=== PATIENT | female | born 1960 | race Caucasian/White ===

== ENCOUNTER → 2017-01-04 | Outpatient (CLI) | payer BC, OTHER ==
[2017-01-04 17:45] LABS: FREE T4 1.25 NG/DL (0.76-1.46)
== END ==
LOC: M LAB 15:49
PROVIDERS: ATTEND Family Medicine
DX: E03.8 Other specified hypothyroidism (principal)

== ENCOUNTER 2017-01-18 12:17 | Emergency (ER) | payer BC, OTHER ==
[~2017-01-18] VITALS: Ht 160 cm; Wt 102.5 kg
[2017-01-18] MEDS ORDERED: LEVO10VL IM (12:59)
[2017-01-18] MEDS ORDERED: LEVO125T3 PO (12:59)
[2017-01-18] MEDS ORDERED: CLIN1CAP5 PO (12:59)
[2017-01-18 13:40] LABS: BASO % 0.6 % (0.0-1.0); EOS # 0.2 K/mm3 (0.0-0.50); EOS % 3.5 % (0.0-3.0); LARGE UNSTAINED CELL # 0.2 K/mm3 (0.0-0.4); LARGE UNSTAINED CELL % 3.9 % (0.0-4.0); LYMPH # 1.7 K/mm3 (1.5-4.5); LYMPH % 29.6 % (24.0-44.0); MEAN CORPUSCULAR HEMOGLOBIN 28.5 pg (27.0-33.0); MEAN CORPUSCULAR HGB CONC 33.3 g/dl (32.0-36.5); MEAN CORPUSCULAR VOLUME 85.6 fl (80.0-96.0); MONO # 0.4 K/mm3 (0.0-0.8); MONO % 7.9 % (0.0-5.0); NEUTROPHILS # 2.8 K/mm3 (1.8-7.7); NEUTROPHILS % 54.5 % (36.0-66.0); PLATELET COUNT, AUTOMATED 215 k/mm3 (150-450); RED CELL DISTRIBUTION WIDTH 13.2 % (11.5-14.5); WHITE BLOOD COUNT 5.2 K/mm3 (4.0-10.0)
[2017-01-18 13:58] LABS: ALBUMIN 3.9 GM/DL (3.2-5.2); ALBUMIN/GLOBULIN RATIO 1.18 (1.00-1.93); ALKALINE PHOSPHATASE 131 U/L (45-117); ALT/SGPT 29 U/L (12-78); ANION GAP 8 MEQ/L (8-16); AST/SGOT 20 U/L (15-37); BILIRUBIN,DIRECT 0.1 MG/DL (0.0-0.2); BILIRUBIN,TOTAL 0.7 MG/DL (0.2-1.0); BLOOD UREA NITROGEN 14 MG/DL (7-18); CARBON DIOXIDE LEVEL 27 MEQ/L (21-32); CHLORIDE LEVEL 102 MEQ/L (98-107); CREATININE FOR GFR 0.64 MG/DL (0.55-1.02); GLOMERULAR FILTRATION RATE > 60.0 (>51); GLUCOSE, FASTING 94 MG/DL (70-105); POTASSIUM SERUM 4.2 MEQ/L (3.5-5.1); SODIUM LEVEL 137 MEQ/L (136-145); TOTAL PROTEIN 7.2 GM/DL (6.4-8.2)
[2017-01-18] MEDS ORDERED: ISOVUE-370 76% 100ML VIAL (Q9967) As Ordered ONE (14:05)
[2017-01-18] MEDS ORDERED: BACT800T5 PO (14:39)
[2017-01-18] MEDS ORDERED: MUPI2OI EXT (14:42)
[2017-01-18 14:52] VITALS: BP 155/98
--- NOTE | 2017-01-18 15:10 | REP ---
REASON FOR EXAM: Assess for deep subcutaneous abscess of the anterior abdominal wall. COMPARISON: 03/01/2016 CONTRAST: 100 mL [id number]. The lung bases are clear and unchanged. Once again, there is diffuse low density throughout the hepatic parenchyma. The gallbladder, spleen, pancreas, adrenal glands, and kidneys are unchanged remaining within normal limits. There is a hiatal hernia, status quo. The abdominal aorta and para-aortic regions are within normal limits and unchanged. The bowel loops and their mesenteries are unchanged remaining within normal limits. There are a few nonspecific nondilated gas and fluid-filled small bowel loops. There is no intra-abdominal mass or adenopathy. There is no free fluid or free air. There is no change in appearance of the anterior abdominal wall. There is no distinct rent or herniation. There is no evidence of an abscess. CT PELVIS: The bowel loops and their mesenteries are within normal limits. There is no mass or adenopathy. There is no free fluid or free air. Bone window technique throughout the exam shows the osseous structures to be stable and intact with mild spinal degenerative changes, status quo. IMPRESSION: No acute intra-abdominal or intrapelvic disease or significant change from the prior exam. There is no evidence of an abscess. There is unchanged diffuse fatty infiltration of the liver and an unchanged hiatal hernia. Signed by Wil Rojas DO 01/18/2017 04:52 P
== END 2017-01-18 14:53 | disposition home or self-care (01) ==
LOC: M ED 13:48
DX: L03.311 Cellulitis of abdominal wall (principal); K44.9 Diaphragmatic hernia without obstruction or gangrene; K76.0 Fatty (change of) liver, not elsewhere classified; Z91.09 Other allergy status, other than to drugs and biological substances
CPT/HCPCS: 74177; 80048; 80076; 83690; 85025; 99282; Q9967

== ENCOUNTER → 2018-02-20 | Outpatient (CLI) | payer BC, OTHER ==
[2018-02-20 11:29] LABS: FREE T4 1.26 NG/DL (0.76-1.46); THYROID STIMULATING HORMONE 0.201 uIU/ML (0.358-3.740)
== END ==
LOC: M LAB 10:34
DX: E03.8 Other specified hypothyroidism (principal); F32.9 Major depressive disorder, single episode, unspecified
CPT/HCPCS: 84443

== ENCOUNTER → 2018-03-27 | Outpatient (CLI) | payer BC, OTHER | LOC: M RAD 06:27 | DX: R10.12 Left upper quadrant pain (principal) | CPT/HCPCS: 76705 ==

== ENCOUNTER → 2018-11-06 | Outpatient (CLI) | payer BC, OTHER ==
[~2018-11-06] MED LIST: BACT800T5 PO; CLIN150C14 PO; LEVO10VL IM; LEVO125T4 PO; MUPI2OI EXT
== END ==
LOC: M LAB 11:27
PROVIDERS: ATTEND Nurse Practitioner
DX: E03.8 Other specified hypothyroidism (principal)

== ENCOUNTER → 2018-12-27 | Outpatient (CLI) | payer BC, OTHER ==
--- NOTE | 2018-12-27 17:07 | REP ---
BILATERAL MAMMOGRAM WITH 3D TOMOSYNTHESIS AND RIGHT BREAST ULTRASOUND: Bilateral mammography performed in the ML and CC projections. 3D tomosynthesis was performed. Comparison made with several prior studies most recently 05/06/2015. There is a family history of breast cancer in maternal grandmother over age 50. Lex Menon lifetime risk of breast cancer 11.3%. Moderate fibroglandular densities are seen bilaterally. A spiculated nodule is seen at 12-o'clock in the right breast. No other mass or clustered microcalcifications are seen bilaterally. There are normal sized axillary lymph nodes bilaterally. Real-time sonographic evaluation of the right breast performed in the region of the spiculated nodule at 12-o'clock right breast. There is a solid irregular nodule at that location corresponding to the mammographic abnormality. There is internal vascularity with duplex Doppler evaluation. This measures approximately 1.3 x 1.0 x 1.1 cm. This is suspicious. IMPRESSION: ACR 4 suspicious. Spiculated nodule 12-o'clock right breast measuring slightly greater than 1 cm in diameter. It is solid by ultrasound. Recommend ultrasound guided biopsy with postprocedure mammogram. BIRADS 4: BI-RADS/ACR category 4 mammogram. Suspicious Abnormality - biopsy should be considered. This mammogram was interpreted with the aid of an FDA-approved computer-aided detection system. The patient states she/he had a clinical breast exam in 11/2018. The patient letter being requested is M4. Electronically Signed by Tom Washington MD 12/27/2018 05:09 P
== END ==
LOC: M RAD 15:07
PROVIDERS: ATTEND Nurse Practitioner
DX: Z12.31 Encounter for screening mammogram for malignant neoplasm of breast (principal); Z80.3 Family history of malignant neoplasm of breast; N63.20 Unspecified lump in the left breast, unspecified quadrant

== ENCOUNTER → 2018-12-28 | Outpatient (CLI) | payer BC, OTHER ==
[~2018-12-28] MED LIST changes: +LIDOCAINE 1% MDV 20ML VIAL As Ordered ONE
--- NOTE | 2018-12-28 12:00 | REP ---
POSTBIOPSY MAMMOGRAM RIGHT BREAST: Postbiopsy mammogram right breast performed following ultrasound guided biopsy of spiculated nodule at 12 o'clock right breast. A metallic clip is seen in the spiculated nodule. Electronically Signed by Tom Washington MD 12/28/2018 04:16 P
--- NOTE | 2018-12-28 16:34 | REP ---
ULTRASOUND GUIDED RIGHT BREAST BIOPSY The procedure was performed under the direct supervision of Dr. Washington The patient has a history of a spiculated nodule in the 12 o'clock position of the right breast seen on a previous ultrasound dated 12/27/2018. The risks and benefits of the procedure were explained to the patient and informed consent was obtained. The left breast nodule was localized using ultrasound guidance. The skin was prepped and draped in a sterile fashion. 1% Xylocaine was used as a local anesthetic. Using ultrasound guidance a 13-gauge suction assisted Mammotome needle was inserted and six core biopsy samples were obtained. A marker clip was placed at the biopsy site. The patient tolerated the procedure well and there were no immediate complications. After the appropriate amount of monitored convalescence the patient was discharged from the department. Reviewed by TREASURE Caba 12/28/2018 04:17 P Electronically Signed by Tom Washington MD 12/28/2018 04:26 P
== END ==
LOC: M RADPRO 09:50
PROVIDERS: ATTEND Nurse Practitioner
DX: C50.911 Malignant neoplasm of unspecified site of right female breast (principal); Z79.899 Other long term (current) drug therapy

== ENCOUNTER → 2019-03-19 | Outpatient (CLI) | payer BC, OTHER ==
[~2019-03-19] MED LIST changes: +ANAS1TAB2 PO; -LIDOCAINE 1% MDV 20ML VIAL As Ordered ONE
--- NOTE | 2019-03-20 10:39 | RADONC ---
RADIATION ONCOLOGY NEW PATIENT CONSULTATION DATE: 03/19/2019 REFERRING PHYSICIAN: Dr. Gloria Boswell CHART NUMBER: [id number] DIAGNOSIS: Infiltrating ductal carcinoma, right breast. STAGE: [id number] status post lumpectomy, ER positive, HER2/sue 2+, in a postmenopausal female. ICD 10 CODE: C50.911 HISTORY OF THE PRESENT ILLNESS: The patient is a 58-year-old woman who has undergone yearly mammograms and to date has had no significant issues with her studies. A screening mammogram though most recently revealed that the right breast showed an abnormality at the 12 o'clock position. A 1.3 cm nodule was noted and under ultrasound a biopsy of this lesion was obtained. This confirmed a diagnosis of an infiltrating ductal carcinoma. The patient was offered breast conservation adjuvant radiotherapy following conservative surgery. She underwent a lumpectomy and sentinel lymph node biopsy on 01/22/2019. The final pathology did indeed confirm an infiltrating ductal carcinoma involving the right breast. The tumor was strongly estrogen receptor positive and progesterone receptor positive. Her HER2/sue was equivocal but thought to be 2+ positive. The patient underwent an oncotype DX, which revealed that the patient had a 3% risk of recurrence over 9 years and chemotherapy benefit was less than 1%. The patient has been started on hormonal therapy under the direction of Dr. Gloria Boswell. She comes today to be evaluated for adjuvant local regional radiotherapy. PAST MEDICAL HISTORY: The patient had an exploratory laparotomy in the past. She also has had GERD requiring surgery in 1997. She had a partial hysterectomy in 2000 and laser surgery for varicose veins in July of 2012. 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 MEDICATIONS: - levothyroxine 125 mcg by mouth daily FAMILY HISTORY OF CANCER: Her father had cancer and is . She has a mother who had cancer presumed to be non-Hodgkin's lymphoma. She also has had cancer involving her maternal grandmother, maternal grandfather, and maternal second cousin. REVIEW OF SYSTEMS: Constitutional: She has a good appetite and does not notice fatigue, fever, lethargy, malaise, night sweats, rigors, chills, or weight change. EENT: Denies ear pain, epistaxis, esophagitis, hearing problems, mouth dryness, oral bleeding, otitis, sinusitis, sputum problems, stomatitis, taste alteration, or tinnitus. Neck: Denies masses, muscle weakness, or pain. Integumentary: Denies alopecia, blisters, bruising, dry skin, facial burning, photosensitivity, pruritus, rash, or urticaria. Breasts: Denies having breast masses at the current time. She also denies nipple discharge, nipple inversion, or pain. Cardiovascular: Denies arrhythmias chest pain, dyspnea, edema, orthopnea, or palpitations. Respiratory: Denies coughing, dyspnea, hemoptysis, hiccups, pleuritic chest pain, or wheezing. Gastrointestinal: Denies changes in bowel habits, constipation, diarrhea, heartburn, dyspepsia, hematemesis, hematochezia, hemorrhoids, melanoma, GI bleeding, nausea, pain, cramping, early satiety, or vomiting. Genitourinary: Denies dysuria, frequency genital masses, hematuria, incontinence, nocturia, renal stones, sexual dysfunction, urgency, change in urine color, or vaginal discharge, or vaginal bleeding. Musculoskeletal: Denies arthritis, bone pain, joint pain, muscle weakness, [id number] changes. Psychiatric: Denies delusions, hallucinations, mood changes, or mood swings. Hematologic: Denies easy bruising or lymphadenopathy. EXAMINATION FINDINGS: Vital signs: Weight 223.6, height 63 inches, temperature 96.3, pulse 77, BP 135/94, O2 saturation 96. HEENT: Normocephalic. EOMs intact. PERRLA. Fundi benign. Lymphatics: No palpable peripheral lymphadenopathy is appreciated in the cervical, supraclavicular, axillary, or inguinal lymph node chains. Lungs are clear to auscultation and percussion. Heart: Regular without murmurs. Abdomen: Without evidence of hepatomegaly, masses, or deep abdominal tenderness. Midline remote surgical scar is noted. Extremities: Without cyanosis, clubbing, or edema. Neurologic: Examination grossly physiologic and nonfocal. Breasts: Bilaterally symmetric but marginally pendulous. No masses are palpable in either breast. No lymphadenopathy is appreciated regionally. IMPRESSION: Stage [id number], ER/IL positive, HER2/sue 2+, in a postmenopausal female. PLAN OF RADIOTHERAPY: The patient has undergone an oncotype DX, which did not indicate a significant improvement in her overall outcome with the use of chemotherapy. She has been placed on hormonal therapy as managed by Dr. Gloria Boswell. We would recommend that she consider adjuvant local regional radiotherapy to consist of whole breast radiotherapy with a boost to the lumpectomy scar site. Prior to treatment delivery localization will be accomplished upon our CT simulator and treatment portals defined by the use of multiple leaf collimators. The patient will be simulated after insurance approval is obtained. The indications, possible side effects, as well as alternatives to radiotherapy been explained to the patient in detail. She understands and is willing to proceed as outlined. Thank you for allowing us the opportunity of participation in the management of this very ankit lady most sincerely. cc: MD Jayashree Villatoro MD [facility]
== END ==
LOC: M ONCR 13:55
PROVIDERS: ATTEND Radiology Radiation Oncology
DX: C50.919 Malignant neoplasm of unspecified site of unspecified female breast (principal)

== ENCOUNTER → 2019-04-11 | Outpatient (CLI) | payer BC ==
--- NOTE | 2019-04-16 15:32 | DEXA ---
AP SPINE L1 - L4 1.032 -1.3 -0.4 LT FEMUR TOTAL 1.024 0.1 0.8 LT NECK 0.881 -1.1 -0.1 RT FEMUR TOTAL 0.945 -0.5 -0.2 RT NECK 0.844 -1.4 0.3 TOTAL BODY TOTAL OTHER COMMENTS: There is low bone density of the spine and hips. FOLLOW-UP: Recommendation for the next bone density exam: 2 years. SANDY
== END ==
LOC: M WHC 13:58
PROVIDERS: ATTEND Internal Medicine Hematology & Oncology
DX: M81.0 Age-related osteoporosis without current pathological fracture (principal)

== ENCOUNTER → 2019-04-24 | Outpatient (RCR) | payer BC, OTHER ==
--- NOTE | 2019-04-02 08:49 | RADONC ---
RADIATION ONCOLOGY SIMULATION NOTE DATE: 04/01/2019 CHART NUMBER: [id number] Ms. Sol was taken to the CT scan for CT simulation of her right breast field. CT was accomplished without difficulty or discomfort. Radiation treatment planning is underway and radiation treatments will begin subsequently. An immobilization device was created without difficulty or discomfort. It will be used throughout the course of treatment. I was physically present throughout the course of CT simulation.
[2019-04-02 10:45] LABS: HEMATOCRIT 38.3 % (36.0-47.0); HEMOGLOBIN 12.8 g/dl (12.0-15.5); LYMPH % 38.8 % (24.0-44.0); MEAN CORPUSCULAR HGB CONC 33.4 g/dl (32.0-36.5); MEAN CORPUSCULAR VOLUME 86.8 fl (80.0-96.0); NEUTROPHILS # 2.1 10^3/uL (1.8-7.7); NEUTROPHILS % 48.1 % (36.0-66.0); RED BLOOD COUNT 4.41 10^6/uL (4.00-5.40); WHITE BLOOD COUNT 4.3 10^3/uL (4.0-10.0)
--- NOTE | 2019-04-17 06:47 | RADONC ---
RADIATION ONCOLOGY PROGRESS NOTE DATE: 04/16/2019 CHART #: [id number] Ms. Sol is presently at a dose of 900 cGy to her right breast and is tolerating treatments quite well at this point with no complaints related to her radiation therapy. She is having no breast or bone pain. REVIEW OF SYSTEMS: The patient's review of systems is noncontributory. Denies nausea, vomiting, fevers, chills, night sweats, diplopia, headaches, anxiety or depression, anorexia, weight loss, visual disturbances, chest pain, urinary or bowel difficulties, bone pain, or neurological problems. PHYSICAL EXAMINATION: The patient's skin is in excellent condition with no evidence of radiation change present. There is no moist or dry desquamation. The remainder of her physical exam remains unchanged. Ms. Sol is tolerating treatments quite well and radiation will continue as scheduled.
--- NOTE | 2019-04-23 07:53 | RADONC ---
RADIATION ONCOLOGY PROGRESS NOTE DATE: 04/22/2019 CHART #: [id number] Ms. Sol is presently at a dose of 1800 cGy to her right breast and is tolerating treatments quite well at this point with no significant difficulties related to her radiation therapy. She is having just some slight breast discomfort. REVIEW OF SYSTEMS: The patient's review of systems is positive for some slight breast discomfort, but is otherwise noncontributory. Denies nausea, vomiting, fevers, chills, night sweats, diplopia, headaches, anxiety or depression, anorexia, weight loss, visual disturbances, chest pain, urinary or bowel difficulties, bone pain, or neurological problems. PHYSICAL EXAMINATION: The patient's skin is in good condition with no evidence of moist or dry desquamation. There is just some erythema and tanning present. The remainder of her physical exam remains unchanged. Ms. Sol is tolerating treatments quite well and radiation will continue as scheduled.
[~2019-04-24] MED LIST changes: +LEVO100T5 PO
== END ==
LOC: M ONCR 04-01 14:05
PROVIDERS: ATTEND Radiology Radiation Oncology
DX: C50.911 Malignant neoplasm of unspecified site of right female breast (principal)

== ENCOUNTER 2019-05-16 07:54 | Outpatient (RCR) | payer BC, OTHER ==
--- NOTE | 2019-05-07 11:47 | RADONC ---
RADIATION ONCOLOGY PROGRESS NOTE DATE: 05/06/2019 CHART #: [id number] Mrs. Sol with right breast cancer is currently receiving radiotherapy and she has achieved a dose of 3600 cGy of a proposed 4860 cGy to the breast. This will most likely be followed by a boost. The patient denies major symptoms related to her disease or to her treatments. REVIEW OF SYSTEMS: She has some skin discomfort in the inframammary fold and in the axilla associated with brisk erythema with focal desquamation. There is no evidence of confluent desquamation. She denies any nausea, vomiting, coughing, sputum production or hemoptysis. Her energy level is such that she is able to maintain most day-to-day activities without any alteration of her lifestyle. The remainder of the review of systems is noncontributory. PHYSICAL EXAMINATION: The patient's skin is markedly erythematous with no focal areas of imminent desquamation. There is no confluent desquamation. No masses are palpable in either breast. The remainder of the physical examination is unchanged. IMPRESSION: Tolerating therapy reasonably well as anticipated, but with marked erythema and imminent focal desquamation. PLAN: Aquaphor to apply to the skin a minimum of twice daily. If the patient develops further desquamation, we will consider giving her a prescription for some Silvadene cream.
--- NOTE | 2019-05-15 14:16 | RADONC ---
RADIATION ONCOLOGY PROGRESS NOTE DATE: 05/13/2019 CHART NUMBER: [id number] PROGRESS NOTE: The patient presently is at a dose of 4320 cGy to her right breast and is tolerating treatments quite well at this point. She is complaining of some discomfort in the axillary region. REVIEW OF SYSTEMS: The patient's review of systems is positive for some axillary discomfort but is otherwise noncontributory. Denies nausea, vomiting, fevers, chills, night sweats, diplopia, headaches, anxiety or depression, anorexia, weight loss, visual disturbances, chest pain, urinary or bowel difficulties, bone pain, or neurological problems. PHYSICAL EXAMINATION: The patient's skin overall is in good condition. There is a small area of some moist desquamation in the axillary region. The remainder of physical exam remains unchanged. I had a lengthy discussion with this patient about the possibility of taking a short treatment break. She is using Silvadene as prescribed by Dr. Finn. The patient reports that she will be going on vacation next week and does not wish to take an extended break. In light of this, she will be continuing her treatment at this time. She will have radiation today and tomorrow, and perhaps take off Monday, and Monday as well as next week coming back to complete her whole breast treatment and then her electron boost field. Once again, she will continue using Silvadene and will consider taking the break we discussed today.
[~2019-05-16 07:54] MED LIST changes: -LEVO100T5 PO
--- NOTE | 2019-05-22 06:40 | RADONC ---
RADIATION ONCOLOGY PROGRESS NOTE DATE: 05/20/2019 CHART #: [id number] Ms. Sol is on vacation this week. She is out of town and therefore did not receive any radiation today. Her dose thus far is at 4860 cGy, last treated on 05/16/2019. She did complete whole breast radiation and will begin her boost treatment to the primary site when she returns next week.
== END 2019-05-25 ==
LOC: M ONCR 07:54
PROVIDERS: ATTEND Radiology Radiation Oncology
DX: C50.911 Malignant neoplasm of unspecified site of right female breast (principal)

== ENCOUNTER 2019-06-03 07:57 | Outpatient (RCR) | payer BC, OTHER ==
--- NOTE | 2019-05-29 08:12 | RADONC ---
RADIATION ONCOLOGY PROGRESS NOTE DATE: 05/28/2019 CHART NUMBER: [id number] PROGRESS NOTE: Mrs. Sol was on a break last week. Actually, she may have been on vacation but she had achieved a dose of 4860 cGy. She was experiencing a great deal of erythema with some focal areas of desquamation. Some of the focal desquamation is still present, however appears to be significantly better. REVIEW OF SYSTEMS: Skin within the irradiated volume as stated. Has evidence of focal desquamation both dry and moist and has some areas around the areola which are also quite irritated. There are no confluent areas of moist desquamation. Her energy level is such that she is able to maintain most day-to-day activities and she is still working. The remainder of the review of systems is unchanged. IMPRESSION: She is a well-nourished, well-developed female, in no acute distress. She does have small focal areas of desquamation scattered throughout the breast most prominent in the inframammary fold in the periareolar area. She also has some areas just underneath her arm. She has been treated with Silvadene cream and this appears to have successfully kept the patient from developing any signs of infection. Tolerating therapy well. PLAN: Treatments to continue. MTDD
== END 2019-06-24 ==
LOC: M ONCR 07:57
PROVIDERS: ATTEND Radiology Radiation Oncology
DX: C50.911 Malignant neoplasm of unspecified site of right female breast (principal)

== ENCOUNTER → 2019-07-03 | Outpatient (CLI) | payer BC, OTHER ==
--- NOTE | 2019-07-04 07:34 | RADONC ---
RADIATION ONCOLOGY FOLLOWUP NOTE DATE: 07/03/2019 CHART NUMBER: [id number] DIAGNOSIS: Right breast cancer. STAGE: IA, T1c, N0, M0. FOLLOWUP NOTE: Ms. Sol is a very pleasant 58-year-old white female with the diagnosis of a stage IA, T1c, N0, M0, infiltrating ductal carcinoma of the right breast who is presenting to us today for routine followup visit 1 month post completion of external beam radiation therapy. The patient presents today reporting that she is doing quite well with no complaints at this time related to her radiation therapy or disease. She has no breast or bone pain. The patient's review of systems is noncontributory. She denies nausea, vomiting, fevers, chills, night sweats, diplopia, headaches, anxiety or depression, anorexia, weight loss, visual disturbances, chest pain, urinary or bowel difficulties, bone pain, or neurological problems. PHYSICAL EXAMINATION: The patient is a well-developed, well-nourished, female in no acute distress. HEENT exam is normocephalic, atraumatic. Extraocular movements are intact. There is no palpable cervical, supraclavicular, infraclavicular, axillary, or inguinal lymphadenopathy present. Lungs are clear to auscultation and percussion. Heart has a regular rate and rhythm. Abdomen is benign with no hepatosplenomegaly, masses, or tenderness. Breast examination reveals no masses or discharge bilaterally. Skeletal examination reveals no tenderness to pressure or percussion of the bony skeleton. Extremities reveal no clubbing, cyanosis, or edema. Neurologic exam is grossly intact, as is the remainder of the physical examination. ASSESSMENT: The patient is clinically CHAYITO at this time. She is scheduled to see her medical oncologist, Dr. Gloria Boswell in July and she is subsequently schedule as well to be seen by her surgeon, Jayashree Conn MD at [facility] [place]. In light of the patient's close followup and management with her medical and surgical oncologist, I have discharged her from my followup except on a as needed basis in light of my coming alf. The patient does have my cell phone number and the number here of our center in case she has any questions or we could be of any assistance whatsoever in the meantime.
--- NOTE | 2019-07-08 08:11 | RADONC ---
RADIATION ONCOLOGY TREATMENT SUMMARY DATE: 07/06/2019 CHART NUMBER: [id number] Upon reviewing the electronic medical record on Ms. Sol, I have discovered that her treatment summary was not dictated by [facility] oncologist. Indeed she completed her treatments on 06/03/2019 and therefore I am adding this treatment summary for the sake of thoroughness. DIAGNOSIS: Infiltrating ductal carcinoma of the right breast. STAGE: IA, T1c N0M0, ER positive, HER2/sue positive. ECOG PERFORMANCE STATUS: 0 TREATMENT SUMMARY: Ms. Sol is a very pleasant 58-year-old white female with the diagnosis of a stage IA, [id number], infiltrating ductal carcinoma of the right breast who presented to us status post lumpectomy and sentinel lymph node biopsy for consideration of postoperative radiation therapy for conservative breast management. We treated the patient to the right breast for a total dose of 4860 cGy delivered in 27 fractions of 180 cGy each over 37 elapsed days from 04/09/2019 through 05/16/2019. The patient's right breast was treated on the linear accelerator utilizing a combination of 6X and 10X photon beams with a 3D conformal technique of planning. Following completion of 4860 cGy to the entire left breast the primary site was boosted for an additional 1000 cGy delivered in five fractions of 200 cGy each over six elapsed days from 05/28/2019 through 06/03/2019. The primary site boost was treated on the linear accelerator utilizing a 16 MeV electron beam prescribed to the 90% isodose line via en face technique. This brought the primary site to a total dose of 5860 cGy delivered in 32 fractions over 43 elapsed days from 04/09/2019 through 06/03/2019. I was not present during the patient's final course of treatment but she told me at her followup she had done quite well without difficulties. I did see this patient in followup just 3 days ago on 07/03/2019 and she will continue her actual followup with her medical oncologist and surgeon.
== END ==
LOC: M ONCR 09:01
PROVIDERS: ATTEND Radiology Radiation Oncology
DX: Z85.3 Personal history of malignant neoplasm of breast (principal); Z92.3 Personal history of irradiation

== ENCOUNTER → 2019-08-09 | Outpatient (CLI) | payer BC, OTHER ==
[2019-08-09 17:00] LABS: THYROID STIMULATING HORMONE 1.25 uIU/ML (0.358-3.740); THYROXINE (T4) 11.5 UG/DL (4.5-12.0)
== END ==
LOC: M LAB 16:00
PROVIDERS: ATTEND Nurse Practitioner
DX: E03.8 Other specified hypothyroidism (principal)

== ENCOUNTER → 2020-01-02 | Outpatient (CLI) | payer BC ==
[~2020-01-02] MED LIST changes: +LEVO100T5 PO
--- NOTE | 2020-01-02 11:23 | REP ---
DIGITAL SCREENING BILATERAL MAMMOGRAPHY WITH CAD AND 3D TOMOGRAPHY: HISTORY: Personal history breast carcinoma treated with lumpectomy and radiation therapy. Comparison mammography December 28, 2018, December 27, 2018, July 06, 2015. FINDINGS: There is diffuse stromal and dermal thickening affecting the right breast post radiation. There is some postoperative fibrosis with multiple surgical clips at 12-o'clock position in the right breast and there are surgical clips in the right axillary region. No dominant density is seen in either breast. No architectural distortion or microcalcification. Left breast is unchanged and unremarkable. IMPRESSION: BIRADS 2: BI-RADS/ACR category 2 mammogram. Benign Findings. Expected post-treatment changes in the right breast. BIRADS category 2 benign findings. Repeat screening mammography recommended 1 year. This mammogram was interpreted with the aid of an FDA-approved computer-aided detection system. The patient states that she/he has not had a clinical breast exam in over a year.
== END ==
LOC: M WHC 10:27
PROVIDERS: ATTEND Surgery
DX: Z12.31 Encounter for screening mammogram for malignant neoplasm of breast (principal); Z85.3 Personal history of malignant neoplasm of breast

== ENCOUNTER → 2020-04-20 | Outpatient (CLI) | payer BC ==
[~2020-04-20] MED LIST changes: +SYNT88TA2 PO
--- NOTE | 2020-05-26 12:48 | DEXA ---
AP SPINE L2 - L4 0.979 -1.7 -0.8 LT FEMUR TOTAL 1.010 0.0 0.8 LT NECK 0.897 -1.0 0.1 RT FEMUR TOTAL 0.912 -0.8 0.0 RT NECK 0.829 -1.5 0.4 TOTAL BODY TOTAL OTHER COMMENTS: There is low bone density of the spine and hips. The density of the spine as decreased 5.1% since 04/11/2019. The density of the spine has decreased 1.4% since 04/11/2019. The density if the spine has decreased 3.5% since 04/11/2019. FOLLOW-UP: Recommendation for the next bone density exam: 2 years. SANDY
== END ==
LOC: M WHC 12:53
PROVIDERS: ATTEND Specialist
DX: Z13.820 Encounter for screening for osteoporosis (principal); C50.919 Malignant neoplasm of unspecified site of unspecified female breast

== ENCOUNTER → 2021-03-12 | Outpatient (CLI) | payer BC ==
[~2021-03-12] MED LIST changes: -CLIN150C14 PO; +CLIN150C15 PO
--- NOTE | 2021-03-12 15:53 | REPMRS ---
Patient History The patient states she had a clinical breast exam in SEP 2020. Patient has history of cancer in the right breast at age 58. Family history of unknown cancer at age 56 in mother, breast cancer at age 50 or over in maternal grandmother. Malignant lumpectomy of the right breast, January 21, 2019. Malignant US guided breast biopsy of the right breast, December 28, 2018. Radiation therapy of the right breast. Tooking Anastrozole for 6 months. Taking unspecified hormones for 4 years. Patient states no breast complaints today. Patient has signed MRS History Sheet. Digital Woman Screen Mammo: March 12, 2021 - Exam #: [id number] Bilateral MLO and CC view(s) were taken. XCCL view(s) were taken of the right breast. Technologist: Renuka Velásquez, Technologist Prior study comparison: January 02, 2020, bilateral digital woman screen mammo performed at [facility]. December 28, 2018, right breast digital mammo diagnostic unilateral, performed at [facility]. FINDINGS: There are scattered fibroglandular densities. Screening. This patient?s lifetime risk for the development of invasive breast cancer can?t be calculated due to her age (less than 20 or greater than 85 years) or a prior history of in situ or invasive breast cancer. Digital screening (2D) mammography was performed bilaterally. Additionally, breast tomosynthesis (3D mammography) was performed bilaterally in the CC and MLO projections. Today's exam was compared to the prior exam/exams. By history, the patient has no complaints of a palpable breast abnormality or other significant breast complaints. The patient is status post lumpectomy/chemo radiation therapy due to breast carcinoma. The breasts are unchanged in size and shape. There are no yoana-areas of internal architectural distortion. There are no yoana-soft tissue densities or areas of spiculation. There is unchanged post radiation skin thickening. Once again, stable benign appearing calcifications are seen. IMPRESSION: BI-RADS Category 2- Benign Findings. There is no evidence of malignant alteration of the breasts. Routine bilateral screening mammogram recommended at its regularly scheduled annual interval. This mammogram was read with the assistance of [employer],an FDA approved computer aided detection system for mammography. The Volpara volumetric breast density category is B, there are scattered areas of fibroglandular densities. Negative x-ray reports should not delay surgical consultation if a dominant or clinically suspicious mass is present. Not all breast cancers can be identified by mammography. Therefore, we recommend that you continue to perform regular breast self-examination and physical examination and then promptly contact your physician of any concerns or changes. Adenosis and dense breasts may obscure an underlying neoplasm. Assessment: BI-RADS/ACR category 2 mammogram. Benign Findings. Recommendation Routine screening mammogram of both breasts in 1 year. Electronically Signed By: Wil Rojas DO 03/12/21 [id number]
== END ==
LOC: M WHC 14:47
PROVIDERS: ATTEND Nurse Practitioner
DX: Z12.31 Encounter for screening mammogram for malignant neoplasm of breast (principal); Z85.3 Personal history of malignant neoplasm of breast

== ENCOUNTER → 2022-03-14 | Outpatient (CLI) | payer BC, OTHER ==
[~2022-03-14] MED LIST changes: -CLIN150C15 PO; +CLIN150C17 PO
== END ==
LOC: M WHC 09:21
PROVIDERS: ATTEND Internal Medicine
DX: Z12.31 Encounter for screening mammogram for malignant neoplasm of breast (principal); R92.8 Other abnormal and inconclusive findings on diagnostic imaging of breast; N63.11 Unspecified lump in the right breast, upper outer quadrant; Z97.8 Presence of other specified devices

== ENCOUNTER → 2022-03-14 | Outpatient (CLI) | payer BC, OTHER | LOC: M WHC 09:23 | PROVIDERS: ATTEND Internal Medicine Hematology & Oncology | DX: Z13.820 Encounter for screening for osteoporosis (principal); M85.88 Other specified disorders of bone density and structure, other site; M85.851 Other specified disorders of bone density and structure, right thigh; M85.852 Other specified disorders of bone density and structure, left thigh ==

== ENCOUNTER → 2022-03-15 | Outpatient (CLI) | payer BC, OTHER ==
[~2022-03-15] MED LIST changes: +GASTROGRAFIN SOLUTION 30ML (Q9963) As Ordered ONE; +ISOVUE-370 76% 100ML VIAL As Ordered ONE
== END ==
LOC: M RAD 08:39
PROVIDERS: ATTEND Physician Assistant
DX: R10.13 Epigastric pain (principal); K21.00 Gastro-esophageal reflux disease with esophagitis, without bleeding
CPT/HCPCS: 74177; Q9963; Q9967

== ENCOUNTER → 2022-03-23 | Outpatient (CLI) | payer BC, OTHER ==
[~2022-03-23] MED LIST changes: -GASTROGRAFIN SOLUTION 30ML (Q9963) As Ordered ONE; -ISOVUE-370 76% 100ML VIAL As Ordered ONE
== END ==
LOC: M WHC 09:22
PROVIDERS: ATTEND Internal Medicine
DX: N63.11 Unspecified lump in the right breast, upper outer quadrant (principal)
CPT/HCPCS: 76642; 77065; G0279

== ENCOUNTER → 2022-04-05 | Outpatient (CLI) | payer BC, OTHER ==
[~2022-04-05] MED LIST changes: +**SFHN** LIDOCAINE 1% MDV 20ML VIAL ONE; +**SFHN** SODIUM BICARBONATE 8.4% 10MEQ 10ML VIAL ONE
[2022-04-05 08:38] VITALS: BP 132/80
== END ==
LOC: M WHCPRO 07:32
PROVIDERS: ATTEND Internal Medicine
DX: R92.8 Other abnormal and inconclusive findings on diagnostic imaging of breast (principal); N63.11 Unspecified lump in the right breast, upper outer quadrant

== ENCOUNTER → 2022-09-14 | Outpatient (CLI) | payer BC, OTHER ==
[~2022-09-14] MED LIST changes: -**SFHN** LIDOCAINE 1% MDV 20ML VIAL ONE; -**SFHN** SODIUM BICARBONATE 8.4% 10MEQ 10ML VIAL ONE
== END ==
LOC: M WHC 08:58
PROVIDERS: ATTEND Internal Medicine Hematology & Oncology
DX: C50.111 Malignant neoplasm of central portion of right female breast (principal)
CPT/HCPCS: 77065; G0279

== ENCOUNTER → 2023-04-03 | Outpatient (CLI) | payer BC, OTHER | LOC: M WHC 08:24 | PROVIDERS: ATTEND Internal Medicine | DX: Z12.31 Encounter for screening mammogram for malignant neoplasm of breast (principal) ==

== ENCOUNTER → 2024-04-08 | Outpatient (CLI) | payer BC | LOC: M WHC 09:20 | PROVIDERS: ATTEND Nurse Practitioner Adult Health | DX: Z12.31 Encounter for screening mammogram for malignant neoplasm of breast (principal); Z13.820 Encounter for screening for osteoporosis; M85.88 Other specified disorders of bone density and structure, other site; Z85.3 Personal history of malignant neoplasm of breast; Z90.11 Acquired absence of right breast and nipple ==

== ENCOUNTER → 2025-04-15 | Outpatient (CLI) | payer BC | LOC: M WHC 06:55 | PROVIDERS: ATTEND Nurse Practitioner Adult Health | DX: C50.111 Malignant neoplasm of central portion of right female breast (principal); R92.323 Mammographic fibroglandular density, bilateral breasts ==